=== PATIENT | male | born 1975 | race Caucasian/White ===

== ENCOUNTER 2018-06-21 23:09 | Inpatient (IN) | payer OTHER ==
[~2018-06-21] VITALS: Ht 165.1 cm; Wt 76.9 kg
--- NOTE | 2018-06-21 23:19 | NUR ---
PT PRESENTED WITH C/O RECTAL PAIN X 2 DAYS, PT ALSO C/O NOT FEELING WELL AND FEVERS ON AND OFF ALONG WITH THIS PAIN. PT TOOK 1,000 MG TYLENOL 5 HOURS AGO. PROVIDED PT WITH GOWN, MONITORS APPLIED, SIDERAILS UP X2, CALL LIGHT WITHIN REACH.
[2018-06-21] MEDS ORDERED: HYDROmorphone 2 MG/ML, 1ML IVPush PRN (23:30)
[2018-06-21] MEDS ORDERED: ONDANSETRON 2MG/ML, 2ML IVPush ONE (23:30)
[2018-06-21] MEDS ORDERED: SODIUM CHLORIDE FLUSH 10ML SYR IVF ONE (23:30)
[2018-06-21] MEDS ORDERED: ACETAMINOPHEN 325 MG TABLET PO ONE (23:30)
[2018-06-21] MEDS ORDERED: ACETAMINOPHEN 325 MG TABLET ONE (23:46)
[2018-06-21] MEDS ORDERED: ONDANSETRON 2MG/ML, 2ML ONE (23:46)
[2018-06-21] MEDS ORDERED: HYDROmorphone 1 MG/ML, 1ML ONE (23:46)
--- NOTE | 2018-06-21 23:54 | NUR ---
IV SITE STARTED, LABS DRAWN. PT MEDICATED PER JUN. MONITORS IN PLACE, SIDERAILS UP X2, FAMILY AT BEDSIDE, CALL LIGTH WITHIN REACH. AWAITING LAB RESULTS AND CT AT THIS TIME.
[2018-06-22 00:02] LABS: BASOPHILS # (AUTO) 0.01 x10^3/uL (0-0.1); BASOPHILS % (AUTO) 0 % (0-1); EOSINOPHILS % (AUTO) 0 % (1-7); LYMPHOCYTES # (AUTO) 0.85 x10^3/uL (1-3.4); LYMPHOCYTES % (AUTO) 6 % (22-44); MD NO; MEAN CORPUSCULAR HEMOGLOBIN 30.3 pg (27.5-34.5); MEAN CORPUSCULAR HGB CONC 34.9 g/dL (33.2-36.2); MEAN CORPUSCULAR VOLUME 86.7 fL (81-97); MEAN PLATELET VOLUME 8.5 fL (7.4-10.4); MONOCYTES # (AUTO) 1.44 x10^3/uL (0.2-0.8); MONOCYTES % (AUTO) 10 % (2-9); NEUTROPHILS # (AUTO) 11.76 x10^3/uL (1.8-6.8); NEUTROPHILS % (AUTO) 84 % (42-75); PLATELET COUNT 219 x10^3/uL (130-400); RED BLOOD COUNT 4.87 x10^6/uL (4.38-5.82); RED CELL DISTRIBUTION WIDTH 12.3 % (9.4-14.8)
[2018-06-22 00:13] LABS: ALBUMIN 3.8 g/dL (3.4-5.0); ANION GAP 8 mmol/L (5-15); CALCIUM 8.6 mg/dL (8.5-10.1); CHLORIDE 104 mmol/L (98-107); CREATININE 0.95 mg/dL (0.7-1.3)
[2018-06-22] MEDS ORDERED: ACETAMINOPHEN 325 MG TABLET ONE (00:26)
[2018-06-22] MEDS ORDERED: OMNIPAQUE 350 MG/ML, 100ML BOTTLE ONE (00:29)
--- NOTE | 2018-06-22 00:32 | NUR ---
PT TO CT
[2018-06-22] MEDS ORDERED: SODIUM CHLORIDE 0.9% 1,000 ML IV ONE (00:50)
[2018-06-22] MEDS ORDERED: VANCOMYCIN 1,500 MG in SODIUM CHLORIDE 0.9% 250 ML IV ONE (01:00)
[2018-06-22] MEDS ORDERED: AMPICILLIN/SULBACTAM 3 GM in SODIUM CHLORIDE 0.9% 100 ML IV ONE (01:00)
[2018-06-22] MEDS ORDERED: PROPOFOL 10 MG/ML, 20ML IVPush ONE (01:00)
[2018-06-22] MEDS ORDERED: VANCOMYCIN PER PHARMACY IV ONE (01:00)
[2018-06-22] MEDS ORDERED: LIDOCAINE 1%-EPI 1:100K, 30ML INFIL ONE (01:00)
[2018-06-22] MEDS ORDERED: PROPOFOL 10 MG/ML, 20ML ONE ×2 (01:07→01:10)
[2018-06-22] MEDS ORDERED: LIDOCAINE 1%-EPI 1:100K, 30ML ONE (01:08)
--- NOTE | 2018-06-22 01:16 | NUR ---
PT RESTING CALMLY, IV FLUIDS AND ABX INFUSING, MONITORS IN PLACE, CALL LIGHT WITHIN REACH. CONSENT SIGNED BY PT FOR I&D WITH CONSCIOUS SEDATION.
[2018-06-22 02:14] VITALS: BP 120/75
--- NOTE | 2018-06-22 02:22 | NUR ---
BREAK RN: SERAFIN AT BS TO TRENA PT. FOR ADMISSION. PT. IS A&OX 4 AT THIS TIME. AT BS FOR SUPPORT. O2 VIA NC DECREASED TO 2L PT. O2 SAT 100% WITH THE 6L HE WAS ON FOR SEDATION PROCEDURE. HR ON MONITOR NSR. RESP EVEN AND NON-LABROED. PT. WITH NO DISTRESS AT THIS TIME.
[2018-06-22] MEDS ORDERED: VANCOMYCIN PER PHARMACY MC PRN (02:30)
[2018-06-22] MEDS ORDERED: POLYETHYLENE GLYCOL 17 GM PACKET PO PRN (02:30)
--- NOTE | 2018-06-22 02:42 | NUR ---
PT. REMAINS A&O X 4. O2 HAS BEEN OFF FOR OVER 5 MINUTES NOW AND PT. IS ABLE TO MAINTAIN O2 SAT AT 96-97% ON RA. PT. AND AWARE OF ROOM # AND TRANSPORT TO FLOOR SOON. IV ABX ARE INFUSING PER MAR. PT. HAS NO COMPLAINTS AT THIS TIME.
[2018-06-22] MEDS ORDERED: NOREPINEPHRINE 4 MG in SODIUM CHLORIDE 0.9% 246 ML IV STA (02:54)
--- NOTE | 2018-06-22 02:54 | NUR ---
REPORT TO SARA BELTRAN.
--- NOTE | 2018-06-22 02:59 | NUR ---
PER DR. CISNEROS NO DRESSING TO BE PLACED TO I&D SITE; TO REMAIN OPEN TO AIR. PT. TO TRANSPORT UP TO FLOOR.
[2018-06-22] MEDS: SODIUM CHLORIDE 0.9% 1,000 ML IV SCH ×3 (03:42→21:00)
[2018-06-22] MEDS ORDERED: PHARMACOKINETIC MONITORING MC PRN (04:30)
[2018-06-22] MEDS ORDERED: PHARMACOKINETIC CONSULTATION MC ONE (04:30)
[2018-06-22] MEDS: AMPICILLIN/SULBACTAM 3 GM in SODIUM CHLORIDE 0.9% 100 ML IV SCH ×4 (04:42→21:00)
[2018-06-22] MEDS: OXYcodone IR 5MG TABLET PO PRN ×2 (04:42→08:51)
[2018-06-22] MEDS: ACETAMINOPHEN 325 MG TABLET PO PRN ×2 (04:43→19:41)
[2018-06-22 06:36] VITALS: BP 116/64
[2018-06-22] MEDS: ENOXAPARIN 40 MG/0.4 ML SQ SCH (08:52)
[2018-06-22 12:18] VITALS: BP 108/72
[2018-06-22] MEDS: VANCOMYCIN 1,400 MG in SODIUM CHLORIDE 0.9% 250 ML IV SCH (12:54)
[2018-06-22 19:25] VITALS: BP 124/71
[2018-06-23] MEDS: VANCOMYCIN 1,400 MG in SODIUM CHLORIDE 0.9% 250 ML IV SCH ×2 (00:48→13:31)
[2018-06-23 02:52] VITALS: BP 105/72
[2018-06-23] MEDS: ACETAMINOPHEN 325 MG TABLET PO PRN (02:57)
[2018-06-23] MEDS: AMPICILLIN/SULBACTAM 3 GM in SODIUM CHLORIDE 0.9% 100 ML IV SCH ×4 (02:57→21:06)
[2018-06-23] MEDS: SODIUM CHLORIDE 0.9% 1,000 ML IV SCH ×2 (05:15→13:32)
[2018-06-23 05:28] LABS: BASOPHILS # (AUTO) 0.02 x10^3/uL (0-0.1); BASOPHILS % (AUTO) 0 % (0-1); EOSINOPHILS # (AUTO) 0.06 x10^3/uL (0-0.4); EOSINOPHILS % (AUTO) 1 % (1-7); LYMPHOCYTES % (AUTO) 24 % (22-44); MD NO; MEAN CORPUSCULAR HEMOGLOBIN 29.8 pg (27.5-34.5); MEAN CORPUSCULAR HGB CONC 33.9 g/dL (33.2-36.2); MEAN CORPUSCULAR VOLUME 87.8 fL (81-97); MEAN PLATELET VOLUME 8.5 fL (7.4-10.4); MONOCYTES # (AUTO) 0.67 x10^3/uL (0.2-0.8); MONOCYTES % (AUTO) 11 % (2-9); NEUTROPHILS # (AUTO) 3.78 x10^3/uL (1.8-6.8); NEUTROPHILS % (AUTO) 64 % (42-75); PLATELET COUNT 188 x10^3/uL (130-400); RED BLOOD COUNT 4.55 x10^6/uL (4.38-5.82); RED CELL DISTRIBUTION WIDTH 12.6 % (9.4-14.8)
[2018-06-23 05:33] LABS: ANION GAP 5 mmol/L (5-15); CALCIUM 8.1 mg/dL (8.5-10.1); CHLORIDE 114 mmol/L (98-107); CREATININE 0.74 mg/dL (0.7-1.3)
[2018-06-23 07:20] VITALS: BP 131/78
[2018-06-23] MEDS: ENOXAPARIN 40 MG/0.4 ML SQ SCH (09:34)
[2018-06-23] MEDS ORDERED: MORPHINE SULFATE 4 MG/ML, 1ML ONE (13:40)
[2018-06-23 14:00] VITALS: BP 118/74
[2018-06-23] MEDS ORDERED: morphine SULFATE 10 MG/ML, 1ML IVPush ONE (14:00)
[2018-06-23 19:30] VITALS: BP 125/70
[2018-06-24] MEDS: SODIUM CHLORIDE 0.9% 1,000 ML IV SCH ×3 (00:23→20:41)
[2018-06-24 00:27] VITALS: BP 116/71
[2018-06-24] MEDS: VANCOMYCIN 1,400 MG in SODIUM CHLORIDE 0.9% 250 ML IV SCH (00:51)
[2018-06-24] MEDS: AMPICILLIN/SULBACTAM 3 GM in SODIUM CHLORIDE 0.9% 100 ML IV SCH ×2 (03:40→09:32)
[2018-06-24 06:48] VITALS: BP 111/69
[2018-06-24] MEDS: ENOXAPARIN 40 MG/0.4 ML SQ SCH (09:33)
[2018-06-24] MEDS ORDERED: morphine SULFATE 10 MG/ML, 1ML IVPush ONE (12:30)
[2018-06-24 12:38] VITALS: BP 117/75
[2018-06-24] MEDS: LEVOFLOXACIN 500 MG TABLET PO SCH (14:30)
[2018-06-24] MEDS ORDERED: MORPHINE SULFATE 4 MG/ML, 1ML ONE (17:01)
[2018-06-24 19:00] VITALS: BP 118/61
[2018-06-25 00:20] VITALS: BP 121/69
[2018-06-25] MEDS: ACETAMINOPHEN 325 MG TABLET PO PRN ×2 (02:23→23:54)
[2018-06-25] MEDS: SODIUM CHLORIDE 0.9% 1,000 ML IV SCH ×3 (02:23→15:41)
[2018-06-25 07:25] VITALS: BP 128/78
[2018-06-25] MEDS: ENOXAPARIN 40 MG/0.4 ML SQ SCH (08:43)
[2018-06-25] MEDS: OXYcodone IR 5MG TABLET PO PRN (11:26)
[2018-06-25 14:16] VITALS: BP 125/76
[2018-06-25] MEDS: LEVOFLOXACIN 500 MG TABLET PO SCH (14:44)
[2018-06-25] MEDS: MEROPENEM 1 GM in SODIUM CHLORIDE 0.9% 100 ML IV SCH ×2 (16:30→23:50)
[2018-06-25 19:54] VITALS: BP 120/69
[2018-06-26 01:18] VITALS: BP 112/62
[2018-06-26] MEDS: SODIUM CHLORIDE 0.9% 1,000 ML IV SCH ×4 (02:27→23:24)
[2018-06-26 05:38] LABS: BASOPHILS # (AUTO) 0.02 x10^3/uL (0-0.1); BASOPHILS % (AUTO) 0 % (0-1); EOSINOPHILS # (AUTO) 0.12 x10^3/uL (0-0.4); EOSINOPHILS % (AUTO) 2 % (1-7); LYMPHOCYTES # (AUTO) 1.67 x10^3/uL (1-3.4); LYMPHOCYTES % (AUTO) 31 % (22-44); MD NO; MEAN CORPUSCULAR HEMOGLOBIN 30.6 pg (27.5-34.5); MEAN CORPUSCULAR HGB CONC 34.8 g/dL (33.2-36.2); MEAN CORPUSCULAR VOLUME 87.9 fL (81-97); MEAN PLATELET VOLUME 8.4 fL (7.4-10.4); MONOCYTES # (AUTO) 0.47 x10^3/uL (0.2-0.8); MONOCYTES % (AUTO) 9 % (2-9); NEUTROPHILS # (AUTO) 3.08 x10^3/uL (1.8-6.8); NEUTROPHILS % (AUTO) 58 % (42-75); PLATELET COUNT 222 x10^3/uL (130-400); RED CELL DISTRIBUTION WIDTH 12.6 % (9.4-14.8)
[2018-06-26 05:49] LABS: ALBUMIN 2.9 g/dL (3.4-5.0); CHLORIDE 113 mmol/L (98-107)
[2018-06-26 05:51] LABS: ANION GAP 3 mmol/L (5-15); CALCIUM 8.5 mg/dL (8.5-10.1); CREATININE 0.74 mg/dL (0.7-1.3)
[2018-06-26 07:08] VITALS: BP 126/81
[2018-06-26] MEDS: MEROPENEM 1 GM in SODIUM CHLORIDE 0.9% 100 ML IV SCH ×3 (08:09→23:24)
[2018-06-26] MEDS: OXYcodone IR 5MG TABLET PO PRN (09:05)
[2018-06-26] MEDS: ENOXAPARIN 40 MG/0.4 ML SQ SCH (10:00)
[2018-06-26] MEDS ORDERED: OMNIPAQUE 350 MG/ML, 100ML BOTTLE ONE (11:54)
[2018-06-26 13:02] VITALS: BP 118/69
[2018-06-26 20:30] VITALS: BP 130/78
[2018-06-27 02:14] VITALS: BP 135/75
[2018-06-27 04:38] LABS: CHLORIDE 111 mmol/L (98-107)
[2018-06-27 04:39] LABS: ALBUMIN 3.1 g/dL (3.4-5.0); ANION GAP 5 mmol/L (5-15); CALCIUM 8.1 mg/dL (8.5-10.1); CREATININE 0.71 mg/dL (0.7-1.3)
[2018-06-27] MEDS: SODIUM CHLORIDE 0.9% 1,000 ML IV SCH (07:00)
[2018-06-27 07:03] VITALS: BP 120/76
[2018-06-27] MEDS: MEROPENEM 1 GM in SODIUM CHLORIDE 0.9% 100 ML IV SCH (08:03)
[2018-06-27] MEDS: ENOXAPARIN 40 MG/0.4 ML SQ SCH (08:57)
[2018-06-27] MEDS: OXYcodone IR 5MG TABLET PO PRN (10:57)
[2018-06-27] MEDS ORDERED: ERTAPENEM 1 GM in SODIUM CHLORIDE 0.9% 50 ML IV SCH (11:30)
[2018-06-27] MEDS ORDERED: ERTA1VIA4 IV (11:52)
[2018-06-27] MEDS ORDERED: IBUP-1221 PO (11:52)
[2018-06-27] MEDS ORDERED: ACET325C5 PO (11:53)
[2018-06-27 12:45] VITALS: BP 128/81
== END 2018-06-27 15:02 | disposition home or self-care (01) | DRG 854 ==
LOC: ED 23:37 → EDIP 06-22 02:14 → 3NE 06-22 03:30
PROVIDERS: ADMIT Family Medicine; ATTEND Family Medicine
PROC: 0D9Q0ZZ Drainage of Anus, Open Approach (ICD-10-PCS; 2018-06-22)
PROC: 02HV33Z Insertion of Infusion Device into Superior Vena Cava, Percutaneous Approach (ICD-10-PCS; principal; 2018-06-26)
PROC: B5181ZA Fluoroscopy of Superior Vena Cava using Low Osmolar Contrast, Guidance (ICD-10-PCS; 2018-06-26)
PROC: B548ZZA Ultrasonography of Superior Vena Cava, Guidance (ICD-10-PCS; 2018-06-26)
DX: A40.8 Other streptococcal sepsis (principal); K61.2 Anorectal abscess; L02.31 Cutaneous abscess of buttock; K64.9 Unspecified hemorrhoids
CPT/HCPCS: 36415; 36573; 72193; 80048; 82040; 85025; 87040; 87070; 87077; 87147; 87186; 87205; 99285; G0378; J0295; J1170; J1335; J1650; J2185; J2405; J3370; Q9967; C1751; J2270; J7030; J7050

== ENCOUNTER → 2018-07-04 | Outpatient (CLI) | payer OTHER ==
[~2018-07-04] MED LIST: ACET325C5 PO; ERTA1VIA4 IV; IBUP-1221 PO
== END | disposition home or self-care (01) ==
LOC: WOUND 08:06
PROVIDERS: ATTEND Internal Medicine Infectious Disease
DX: T81.89XA Other complications of procedures, not elsewhere classified, initial encounter (principal); L02.31 Cutaneous abscess of buttock; Y92.89 Other specified places as the place of occurrence of the external cause; Y83.8 Other surgical procedures as the cause of abnormal reaction of the patient, or of later complication, without mention of misadventure at the time of the procedure
CPT/HCPCS: 99214

== ENCOUNTER → 2018-07-18 | Outpatient (CLI) | payer OTHER | END | disposition home or self-care (01) | LOC: WOUND 08:00 | PROVIDERS: ATTEND Internal Medicine Infectious Disease | DX: T81.31XD Disruption of external operation (surgical) wound, not elsewhere classified, subsequent encounter (principal); L02.31 Cutaneous abscess of buttock; Y83.8 Other surgical procedures as the cause of abnormal reaction of the patient, or of later complication, without mention of misadventure at the time of the procedure | CPT/HCPCS: 99214 ==

== ENCOUNTER → 2018-07-25 | Outpatient (CLI) | payer OTHER | END | disposition home or self-care (01) | LOC: WOUND 08:24 | PROVIDERS: ATTEND Nurse Practitioner Family | DX: T81.31XD Disruption of external operation (surgical) wound, not elsewhere classified, subsequent encounter (principal); L02.31 Cutaneous abscess of buttock; Y83.8 Other surgical procedures as the cause of abnormal reaction of the patient, or of later complication, without mention of misadventure at the time of the procedure | CPT/HCPCS: 99213 ==